=== PATIENT | male | born 1945 | race Caucasian/White ===

== ENCOUNTER 2019-08-27 14:01 | Emergency (ER) | payer OTHER ==
[~2019-08-27] VITALS: Ht 177.8 cm; Wt 95.3 kg
[~2019-08-27 14:01] MED LIST: BACTRIM DS TAB1 EACH PO; DIOVAN160 MG; HYDROCODONE-AP1 EAC6 PO; NIASPAN ER 101000 M1; PERCOCET 5-3251 EACH PO; PRILOSEC; SIMVASTATIN40 MG; ZETIA10 MG
[2019-08-27] MEDS ORDERED: NORCO 5-325 TA1 EAC1 PO (15:43)
[2019-08-27 16:48] VITALS: BP 124/69
== END 2019-08-27 16:47 | disposition home or self-care (01) ==
LOC: M.ERS 14:01
DX: S43.005A Unspecified dislocation of left shoulder joint, initial encounter (principal); I10 Essential (primary) hypertension; K21.9 Gastro-esophageal reflux disease without esophagitis; E78.00 Pure hypercholesterolemia, unspecified; Z95.5 Presence of coronary angioplasty implant and graft; W01.0XXA Fall on same level from slipping, tripping and stumbling without subsequent striking against object, initial encounter; Y93.89 Activity, other specified; Y92.89 Other specified places as the place of occurrence of the external cause; Y99.8 Other external cause status